=== PATIENT | male | born 1975 | race Caucasian/White ===

== ENCOUNTER 2016-11-17 14:23 | Observation (INO) ==
[2016-11-17] MEDS ORDERED: *HR* LORazepam 2 MG/ML VIAL ONE (14:44)
[2016-11-17] MEDS ORDERED: Haloperidol Lactate 5 MG/ML VIAL IM ONE (14:44)
[2016-11-17] MEDS ORDERED: *HR* LORazepam 2 MG/ML VIAL IM ONE (14:44)
[2016-11-17] MEDS ORDERED: Haloperidol Lactate 5 MG/ML VIAL ONE (14:44)
--- NOTE | 2016-11-17 14:58 | Emergency Department Note ---
Disposition Clinical Impression: Alcohol intoxication Qualifiers: Complication of substance-induced condition: with unspecified complication Qualified Code(s): F10.129 - Alcohol abuse with intoxication, unspecified Psychosis Qualifiers: Psychosis type: unspecified psychosis type Qualified Code(s): F29 - Unspecified psychosis not due to a substance or known physiological condition Disposition: Admitted As Inpatient Condition: Fair Time of Disposition: 16:26 Psych HPI - General Chief Complaint: ED Psychiatric Symptoms Stated Complaint: SI Time Seen by Provider: 11/17/16 14:27 Source: patient, EMS Mode of arrival: EMS Limitations: no limitations Nursing Notes Reviewed: Yes Vital Signs Reviewed: Yes - History of Present Illness HPI Narrative: Patient presents ambulatory by EMS. EMS reported that a neighbor or family member did a welfare check and found the patient to be acting bizarrely. They summoned law enforcement which summoned EMS personnel. The patient denies physical complaints initially. He denies substance abuse. He denies suicidal ideation. He was reported to have superficial self-inflicted abrasions to his left wrist but when questioned he states "it was an accident." The patient was initially a limited historian but denies physical complaints Pt complaint: other History of similar episodes: Yes Associated Psychiatric Symptoms: other (Change in behavior) Associated symptoms: Reports: denies other symptoms Traumatic symptoms: abrasion Treatments prior to arrival: none - Related Data Home Medications Medication Instructions Recorded Confirmed Buspirone HCl [Buspar] 5 mg PO TID 11/17/16 11/17/16 FLUoxetine HCl [Fluoxetine HCl] 40 mg PO QAM 11/17/16 11/17/16 Allergies Allergy/AdvReac Type Severity Reaction Status Date / Time No Known Allergies Allergy Verified 09/25/16 20:21 All systems ED: reviewed and negative except as stated. Constitutional: Reports: as per HPI Eyes: Reports: as per HPI ENT ED: Reports: as per HPI Cardiovascular: Reports: as per HPI Respiratory: Reports: as per HPI Gastrointestinal: Reports: as per HPI Genitourinary: Reports: as per HPI Musculoskeletal: Reports: as per HPI Integumentary: Reports: abrasion Neurological: Reports: as per HPI Psychiatric: Reports: as per HPI Endocrine: Reports: as per HPI Hematological/Lymphatic: Reports: as per HPI Allergic/Immunologic: Reports: as per HPI Past Medical History - Past Medical History Source: patient Medical history: Reports: no medical history Psychiatric history: Reports: other - Social History Smoking Status: Current every day smoker Smokeless Tobacco Status: No Alcohol use: Reports: heavy, recent Drug use: Reports: none Physical Exam Patient initially ambulated to the treatment area voluntarily without physical complaints - General Limitations: no limitations General appearance: alert - Head Head exam: atraumatic - Eye Eye exam: Present: normal appearance, PERRL, other (Enlarged pupils) - ENT ENT exam: normal exam - Neck Neck exam: Present: normal inspection - Chest Chest inspection: Present: normal inspection, symmetric chest wall rise - Respiratory Respiratory exam: Present: normal lung sounds bilaterally - Cardiovascular Cardiovascular exam: Present: regular rate, normal rhythm, normal heart sounds - Rectal Exam Rectal exam: Present: deferred - Extremities Exam Extremities exam: Present: normal inspection - Neurological Exam Neurological exam: Present: alert, oriented X3, CN II-XII intact, other ( Oriented to person, place, time, president) - Psychiatric Psychiatric exam: Present: other (Initially calm) - Skin Skin exam: Present: warm, dry, other (Transverse superficial abrasions in parallel orientation at the volar aspect of left wrist) Course Course Narrative: The patient initially ambulated to the treatment area, and cooperative. He seemed to be an elusive historian. He denied suicidal ideation, thoughts of self-harm, self-inflicted abrasions, or any physical complaints. Shortly thereafter, the patient became progressively agitated. She stood up and threatened to harm staff. He specifically stated that he would break my nose and jaw. He required physical restraints and subsequently intramuscular neuroleptic medications for behavioral control. I will attempt to clear him medically for behavioral evaluation - Reevaluation(s) Reevaluation #1: Patient now calmer. I requested staff to remove one extremity restraightened Reevaluation #2: 2nd restraint to be removed. patient calm Reevaluation #3: Alcohol level 312. Based on calculations, he will not be cleared medically for a behavioral evaluation until 9 hours from now. I will request admission to the medicine service pending sobriety Additional Reevaluation(s): I had a lengthy discussion with the patient's parents. They state that he went through alcohol treatment in August 2016. He has a history of alcoholism which causes this type of angry behavior. They state he has underwent behavioral consultation in the past. They feel "blown off." They have requested that one of the 1A nurses speak with them regarding their concerns. Echo has agreed to do so Vital Signs Temperature 97.7 F 11/17/16 14:36 Pulse Rate 64 11/17/16 14:36 Respiratory Rate 16 11/17/16 14:36 Blood Pressure 163/97 11/17/16 14:36 O2 Sat by Pulse Oximetry 96 11/17/16 14:36 Temperature 97.7 F 11/17/16 14:36 Pulse Rate 91 11/17/16 16:40 Respiratory Rate 16 11/17/16 17:25 Blood Pressure 107/66 11/17/16 17:25 O2 Sat by Pulse Oximetry 96 11/17/16 16:40 Oxygen Delivery Oxygen Delivery Room Air Psych - Medical Records Medical records reviewed: Yes I reviewed the patient's medical records. - Lab Data Lab results reviewed: Yes I reviewed the patient's lab results. Result diagrams: 11/17/16 15:49 11/17/16 15:49 Lab Results 11/17/16 11/17/16 11/17/16 Range/Units 15:23 15:23 15:49 WBC 5.1 (4.3-11.1) K/mcL RBC 4.83 (4.19-5.50) M/mcL Hgb 15.6 (12.9-16.9) g/dL Hct 45.3 (37.5-50.1) % MCV 93.8 (83.0-100.0) fL MCH 32.3 (28.0-33.3) pg MCHC 34.4 (31.6-35.5) g/dL RDW 13.8 (11.5-14.5) % Plt Count 195 (140-400) K/mcL MPV 9.3 L (9.4-12.4) fL Immature Gran % 1.4 (0-4) % Seg Neutrophils % 43.2 % Lymphocytes % 45.1 % Monocytes % 6.9 % Eosinophils % 2.4 % Basophils % 1.0 % Neutrophils # 2.2 (1.6-8.9) K/mcL Lymphocytes # 2.3 (0.6-4.6) K/mcL Monocytes # 0.4 (0.0-1.3) K/mcL Eosinophils # 0.1 (0.0-0.6) K/mcL Basophils # 0.1 (0.0-0.2) K/mcL Sodium (136-145) mEq/L Potassium (3.5-4.5) mEq/L Chloride (98-109) mEq/L Carbon Dioxide (19-29) mEq/L BUN (8-26) mg/dL Creatinine (0.72-1.25) mg/dL Est GFR ( Amer) (> 60) Est GFR (Non-Af Amer) (> 60) BUN/Creatinine Ratio (6-26) Glucose (70-99) mg/dL Calculated Osmolality (280-300) Calcium (8.6-10.8) mg/dL Total Bilirubin (0.2-1.2) mg/dL AST (5-34) Units/L ALT (0-55) Units/L Alkaline Phosphatase (38-126) Units/L Serum Total Protein (6.0-8.3) g/dL Albumin (3.5-5.0) g/dL Globulin (2.4-3.5) g/dL Albumin/Globulin Ratio (1.1-2.2) Urine Color Yellow (Yellow) Urine Clarity Cloudy A (Clear) Urine pH 5.5 (5.0-8.0) pH Units Ur Specific [place] 1.016 (1.010-1.025) Urine Protein Negative (Neg-Trace) mg/dL Urine Glucose (UA) Normal (Normal) mg/dL Urine Ketones Negative (Negative) mg/dL Urine Blood Negative (Negative) Urine Nitrite Negative (Negative) Urine Bilirubin Negative (Negative) Urine Urobilinogen Normal (Normal) mg/dL Ur Leukocyte Esterase Negative (Negative) Urine Microscopic RBC 0-3 (0-3) per hpf Urine Microscopic WBC 3-5 H (0-3) per hpf Ur Squamous Epith Cells Many H (None-Few) per lpf Ur Renal Epithelial Cell Few (None-Few) per hpf Urine Bacteria Few (None-Few) per hpf Hyaline Casts Test Not Performed Urine Mucus Many H (Few) Salicylates (15-30) mg/dL Urine Opiates Screen Negative (Sfivnd=510) ng/mL Acetaminophen (10-30) mcg/mL Ur Barbiturates Screen Negative (Rlpeeu=295) ng/mL Ur Phencyclidine Scrn Negative (Cutoff=25) ng/mL Ur Amphetamines Screen Negative (Sdhzmo=2030) ng/mL U Benzodiazepines Scrn Negative (Qwswpt=075) ng/mL Urine Cocaine Screen Negative (Cutoff= 300) ng/mL U Marijuana (THC) Screen Negative (Cutoff = 50) ng/mL Ethyl Alcohol (0-10) mg/dL 11/17/16 Range/Units 15:49 WBC (4.3-11.1) K/mcL RBC (4.19-5.50) M/mcL Hgb (12.9-16.9) g/dL Hct (37.5-50.1) % MCV (83.0-100.0) fL MCH (28.0-33.3) pg MCHC (31.6-35.5) g/dL RDW (11.5-14.5) % Plt Count (140-400) K/mcL MPV (9.4-12.4) fL Immature Gran % (0-4) % Seg Neutrophils % % Lymphocytes % % Monocytes % % Eosinophils % % Basophils % % Neutrophils # (1.6-8.9) K/mcL Lymphocytes # (0.6-4.6) K/mcL Monocytes # (0.0-1.3) K/mcL Eosinophils # (0.0-0.6) K/mcL Basophils # (0.0-0.2) K/mcL Sodium 144 (136-145) mEq/L Potassium 4.0 (3.5-4.5) mEq/L Chloride 108 (98-109) mEq/L Carbon Dioxide 20 (19-29) mEq/L BUN 11 (8-26) mg/dL Creatinine 0.79 (0.72-1.25) mg/dL Est GFR ( Amer) > 60 (> 60) Est GFR (Non-Af Amer) > 60 (> 60) BUN/Creatinine Ratio 14 (6-26) Glucose 80 (70-99) mg/dL Calculated Osmolality 296 (280-300) Calcium 8.7 (8.6-10.8) mg/dL Total Bilirubin 0.3 (0.2-1.2) mg/dL AST 23 (5-34) Units/L ALT 19 (0-55) Units/L Alkaline Phosphatase 55 (38-126) Units/L Serum Total Protein 6.6 (6.0-8.3) g/dL Albumin 4.1 (3.5-5.0) g/dL Globulin 2.5 (2.4-3.5) g/dL Albumin/Globulin Ratio 1.6 (1.1-2.2) Urine Color (Yellow) Urine Clarity (Clear) Urine pH (5.0-8.0) pH Units Ur Specific [place] (1.010-1.025) Urine Protein (Neg-Trace) mg/dL Urine Glucose (UA) (Normal) mg/dL Urine Ketones (Negative) mg/dL Urine Blood (Negative) Urine Nitrite (Negative) Urine Bilirubin (Negative) Urine Urobilinogen (Normal) mg/dL Ur Leukocyte Esterase (Negative) Urine Microscopic RBC (0-3) per hpf Urine Microscopic WBC (0-3) per hpf Ur Squamous Epith Cells (None-Few) per lpf Ur Renal Epithelial Cell (None-Few) per hpf Urine Bacteria (None-Few) per hpf Hyaline Casts Urine Mucus (Few) Salicylates < 5.0 L (15-30) mg/dL Urine Opiates Screen (Tqspkp=174) ng/mL Acetaminophen < 1.0 L (10-30) mcg/mL Ur Barbiturates Screen (Vcjgof=891) ng/mL Ur Phencyclidine Scrn (Cutoff=25) ng/mL Ur Amphetamines Screen (Hbfcpu=2692) ng/mL U Benzodiazepines Scrn (Zseejf=482) ng/mL Urine Cocaine Screen (Cutoff= 300) ng/mL U Marijuana (THC) Screen (Cutoff = 50) ng/mL Ethyl Alcohol 312 H (0-10) mg/dL Psychiatric Medical Clearance - Medical Clearance Checklist Medical History: No Social History Section defined Current Vitals: Last Vital Signs Temp 97.7 F 11/17/16 14:36 Pulse 91 11/17/16 16:40 Resp 16 11/17/16 17:25 BP 107/66 11/17/16 17:25 Pulse Ox 96 11/17/16 16:40 Psychiatric Lab Panel: Drug Levels and Toxicity 11/17/16 11/17/16 15:23 15:49 Urine Opiates Screen Negative Acetaminophen < 1.0 L Ur Barbiturates Screen Negative Ur Phencyclidine Scrn Negative Ur Amphetamines Screen Negative U Benzodiazepines Scrn Negative Urine Cocaine Screen Negative U Marijuana (THC) Screen Negative Ethyl Alcohol 312 H Abnormal Labs: Abnormal lab results MPV 9.3 fL (9.4-12.4) L 11/17/16 15:49 Urine Clarity Cloudy (Clear) A 11/17/16 15:23 Urine Microscopic WBC 3-5 per hpf (0-3) H 11/17/16 15:23 Ur Squamous Epith Cells Many per lpf (None-Few) H 11/17/16 15:23 Urine Mucus Many (Few) H 11/17/16 15:23 Salicylates < 5.0 mg/dL (15-30) L 11/17/16 15:49 Acetaminophen < 1.0 mcg/mL (10-30) L 11/17/16 15:49 Ethyl Alcohol 312 mg/dL (0-10) H 11/17/16 15:49 Statement of Medical Clearance: I have evaluated the patient, reviewed diagnostic information, and certify that the patient's medical condition is sufficiently stable that transfer to the psychiatric unit does not pose a significant risk of deterioration. Critical Care Time Critical Care Time: Yes Total Critical Care Time: 30 Attestation: Patient became agitated requiring physical restraint and chemical sedation. He is intoxicated. Unable to clear her medically for behavioral evaluation. Admitted to the medicine service
[2016-11-17 15:40] LABS: Bilirubin,Urine Negative (Negative); Blood,Urine Negative (Negative); Clarity,Urine Cloudy (Clear); Color,Urine Yellow (Yellow); Glucose,Urine (UA) Normal (Normal); Ketones,Urine Negative (Negative); Leukocyte Esterase,Urine Negative (Negative); Nitrite,Urine Negative (Negative); PH,Urine 5.5 pH Units (5.0-8.0); Protein,Urine Negative (Neg-Trace); Specific Gravity,Urine 1.016 (1.010-1.025); Urobilinogen,Urine Normal (Normal)
[2016-11-17 15:42] LABS: RBC,Urine 0-3 per hpf (0-3); Squamous Epithelial Cell,Urine Many per lpf (None-Few)
[2016-11-17 15:50] LABS: Amphetamine Screen,Urine Negative ng/mL (Cutoff=1000); Barbiturate Screen,Urine Negative ng/mL (Cutoff=200); Benzodiazepines Screen,Urine Negative ng/mL (Cutoff=200); Cannabinoid Screen,Urine Negative ng/mL (Cutoff = 50); Cocaine Screen,Urine Negative ng/mL (Cutoff= 300); Opiate Screen,Urine Negative ng/mL (Cutoff=300); Phencyclidine Screen,Urine Negative ng/mL (Cutoff=25)
[2016-11-17 15:54] LABS: Basophils # 0.1 K/mcL (0.0-0.2); Eosinophils # 0.1 K/mcL (0.0-0.6); Eosinophils % 2.4 %; Hematocrit 45.3 % (37.5-50.1); Hemoglobin 15.6 g/dL (12.9-16.9); Immature Granulocytes % 1.4 % (0-4); Lymphocytes # 2.3 K/mcL (0.6-4.6); Lymphocytes % 45.1 %; Mean Corpuscular HGB Conc 34.4 g/dL (31.6-35.5); Mean Corpuscular Hemoglobin 32.3 pg (28.0-33.3); Mean Corpuscular Volume 93.8 fL (83.0-100.0); Mean Platelet Volume 9.3 fL (9.4-12.4); Monocytes # 0.4 K/mcL (0.0-1.3); Monocytes % 6.9 %; Neutrophils # 2.2 K/mcL (1.6-8.9); Platelet Count 195 K/mcL (140-400); Red Blood Count 4.83 M/mcL (4.19-5.50); Red Cell Distribution Width 13.8 % (11.5-14.5); Segmented Neutrophils % 43.2 %
[2016-11-17 16:09] LABS: Acetaminophen < 1.0 mcg/mL (10-30); Alanine Aminotransferase 19 Units/L (0-55); Albumin 4.1 g/dL (3.5-5.0); Albumin/Globulin Ratio 1.6 (1.1-2.2); Alkaline Phosphatase 55 Units/L (38-126); Aspartate Amino Transferase 23 Units/L (5-34); BUN/Creatinine Ratio 14 (6-26); Bilirubin,Total 0.3 mg/dL (0.2-1.2); Blood Urea Nitrogen 11 mg/dL (8-26); Calcium 8.7 mg/dL (8.6-10.8); Carbon Dioxide 20 mEq/L (19-29); Chloride 108 mEq/L (98-109); Ethanol 312 mg/dL (0-10); Globulin 2.5 g/dL (2.4-3.5); Glucose 80 mg/dL (70-99); Osmolality,Calculated 296 (280-300); Salicylate < 5.0 mg/dL (15-30); Sodium 144 mEq/L (136-145); Total Protein 6.6 g/dL (6.0-8.3); eGFR For African Americans > 60 (> 60); eGFR For Non-African Americans > 60 (> 60)
[2016-11-17 16:13] LABS: Mucus,Urine Many (Few); Renal Epithelial Cells,Urine Few per hpf (None-Few)
[2016-11-17 16:14] LABS: Bacteria,Urine Few per hpf (None-Few)
[2016-11-17] MEDS ORDERED: Naloxone 0.4 MG/ML INJ IVP PRN (17:24)
[2016-11-17] MEDS ORDERED: Ondansetron 4 MG/2 ML VIAL IVP PRN (17:24)
[2016-11-17] MEDS ORDERED: Acetaminophen 325 MG TABLET PO PRN (17:24)
--- NOTE | 2016-11-17 17:38 | Internal Med History&Physical ---
Date of Encounter: 11/17/16 Time of Encounter: 16:55 Internal Medicine - H&P: HPI Chief complaint: confusion Admitted From: Emergency Dept Plans for Post Hospital Care: Home History of present illness: Mr. Oquendo is a 41 year old male with medical history significant for anxiety on Fluoxetine and Buspirone was brought in by EMS after a family member called law enforcement to report the patient was acting bizarre . Law enforcement then called EMS. As per ED report, the patient had no complaints at presentation, he denied use of illicit drug, as well as suicidal ideation. ED personnel was concerned about some marking on his wrist, thought to be self-inflicted, he reports the marking were accidental. At the time I evaluated him, he was sleeping, but easily arousable, only to drift back to sleep. History was thus limited. He was able to tell be he was fine and had no complaints. I am unable to complete a ROS or family history, personal medical or surgical history. I had to rely on prior medical records. Vital Signs Temperature 97.7 F 11/17/16 14:36 Pulse Rate 64 11/17/16 14:36 Respiratory Rate 16 11/17/16 14:36 Blood Pressure 163/97 11/17/16 14:36 O2 Sat by Pulse Oximetry 96 11/17/16 14:36 Temperature 97.7 F 11/17/16 14:36 Pulse Rate 97 11/17/16 15:47 Respiratory Rate 16 11/17/16 15:47 Blood Pressure 96/56 11/17/16 15:47 O2 Sat by Pulse Oximetry 95 11/17/16 15:47 O/E: Not in distress, drowsy/somnolent, not or ill and toxic looking HEENT: Not pale, anicteric, acyanotic, afebrile Chest: snoring, otherwise clinically clear Heart: RRR, HS1.2 no murmur Abdomen: soft, non-tender, no masses. : no suprapubic tenderness. no flank or CVA tenderness. FOUNDRY HAND: AAO x3, no gross focal neurological signs, as he moves all four limbs spontaneously. Psychiatry: Unable to assess. Extremities: no pedal edema, normal pedal pulses, no calf tenderness. Lab Results 11/17/16 11/17/16 11/17/16 Range/Units 15:23 15:23 15:49 WBC 5.1 (4.3-11.1) K/mcL RBC 4.83 (4.19-5.50) M/mcL Hgb 15.6 (12.9-16.9) g/dL Hct 45.3 (37.5-50.1) % MCV 93.8 (83.0-100.0) fL MCH 32.3 (28.0-33.3) pg MCHC 34.4 (31.6-35.5) g/dL RDW 13.8 (11.5-14.5) % Plt Count 195 (140-400) K/mcL MPV 9.3 L (9.4-12.4) fL Immature Gran % 1.4 (0-4) % Seg Neutrophils % 43.2 % Lymphocytes % 45.1 % Monocytes % 6.9 % Eosinophils % 2.4 % Basophils % 1.0 % Neutrophils # 2.2 (1.6-8.9) K/mcL Lymphocytes # 2.3 (0.6-4.6) K/mcL Monocytes # 0.4 (0.0-1.3) K/mcL Eosinophils # 0.1 (0.0-0.6) K/mcL Basophils # 0.1 (0.0-0.2) K/mcL Sodium (136-145) mEq/L Potassium (3.5-4.5) mEq/L Chloride (98-109) mEq/L Carbon Dioxide (19-29) mEq/L BUN (8-26) mg/dL Creatinine (0.72-1.25) mg/dL Est GFR ( Amer) (> 60) Est GFR (Non-Af Amer) (> 60) BUN/Creatinine Ratio (6-26) Glucose (70-99) mg/dL Calculated Osmolality (280-300) Calcium (8.6-10.8) mg/dL Total Bilirubin (0.2-1.2) mg/dL AST (5-34) Units/L ALT (0-55) Units/L Alkaline Phosphatase (38-126) Units/L Serum Total Protein (6.0-8.3) g/dL Albumin (3.5-5.0) g/dL Globulin (2.4-3.5) g/dL Albumin/Globulin Ratio (1.1-2.2) Urine Color Yellow (Yellow) Urine Clarity Cloudy A (Clear) Urine pH 5.5 (5.0-8.0) pH Units Ur Specific [place] 1.016 (1.010-1.025) Urine Protein Negative (Neg-Trace) mg/dL Urine Glucose (UA) Normal (Normal) mg/dL Urine Ketones Negative (Negative) mg/dL Urine Blood Negative (Negative) Urine Nitrite Negative (Negative) Urine Bilirubin Negative (Negative) Urine Urobilinogen Normal (Normal) mg/dL Ur Leukocyte Esterase Negative (Negative) Urine Microscopic RBC 0-3 (0-3) per hpf Urine Microscopic WBC 3-5 H (0-3) per hpf Ur Squamous Epith Cells Many H (None-Few) per lpf Ur Renal Epithelial Cell Few (None-Few) per hpf Urine Bacteria Few (None-Few) per hpf Hyaline Casts Test Not Performed Urine Mucus Many H (Few) Salicylates (15-30) mg/dL Urine Opiates Screen Negative (Ipbaog=186) ng/mL Acetaminophen (10-30) mcg/mL Ur Barbiturates Screen Negative (Jkhpna=085) ng/mL Ur Phencyclidine Scrn Negative (Cutoff=25) ng/mL Ur Amphetamines Screen Negative (Vofutx=7994) ng/mL U Benzodiazepines Scrn Negative (Pepnph=184) ng/mL Urine Cocaine Screen Negative (Cutoff= 300) ng/mL U Marijuana (THC) Screen Negative (Cutoff = 50) ng/mL Ethyl Alcohol (0-10) mg/dL 11/17/16 Range/Units 15:49 WBC (4.3-11.1) K/mcL RBC (4.19-5.50) M/mcL Hgb (12.9-16.9) g/dL Hct (37.5-50.1) % MCV (83.0-100.0) fL MCH (28.0-33.3) pg MCHC (31.6-35.5) g/dL RDW (11.5-14.5) % Plt Count (140-400) K/mcL MPV (9.4-12.4) fL Immature Gran % (0-4) % Seg Neutrophils % % Lymphocytes % % Monocytes % % Eosinophils % % Basophils % % Neutrophils # (1.6-8.9) K/mcL Lymphocytes # (0.6-4.6) K/mcL Monocytes # (0.0-1.3) K/mcL Eosinophils # (0.0-0.6) K/mcL Basophils # (0.0-0.2) K/mcL Sodium 144 (136-145) mEq/L Potassium 4.0 (3.5-4.5) mEq/L Chloride 108 (98-109) mEq/L Carbon Dioxide 20 (19-29) mEq/L BUN 11 (8-26) mg/dL Creatinine 0.79 (0.72-1.25) mg/dL Est GFR ( Amer) > 60 (> 60) Est GFR (Non-Af Amer) > 60 (> 60) BUN/Creatinine Ratio 14 (6-26) Glucose 80 (70-99) mg/dL Calculated Osmolality 296 (280-300) Calcium 8.7 (8.6-10.8) mg/dL Total Bilirubin 0.3 (0.2-1.2) mg/dL AST 23 (5-34) Units/L ALT 19 (0-55) Units/L Alkaline Phosphatase 55 (38-126) Units/L Serum Total Protein 6.6 (6.0-8.3) g/dL Albumin 4.1 (3.5-5.0) g/dL Globulin 2.5 (2.4-3.5) g/dL Albumin/Globulin Ratio 1.6 (1.1-2.2) Urine Color (Yellow) Urine Clarity (Clear) Urine pH (5.0-8.0) pH Units Ur Specific [place] (1.010-1.025) Urine Protein (Neg-Trace) mg/dL Urine Glucose (UA) (Normal) mg/dL Urine Ketones (Negative) mg/dL Urine Blood (Negative) Urine Nitrite (Negative) Urine Bilirubin (Negative) Urine Urobilinogen (Normal) mg/dL Ur Leukocyte Esterase (Negative) Urine Microscopic RBC (0-3) per hpf Urine Microscopic WBC (0-3) per hpf Ur Squamous Epith Cells (None-Few) per lpf Ur Renal Epithelial Cell (None-Few) per hpf Urine Bacteria (None-Few) per hpf Hyaline Casts Urine Mucus (Few) Salicylates < 5.0 L (15-30) mg/dL Urine Opiates Screen (Hjxfxa=704) ng/mL Acetaminophen < 1.0 L (10-30) mcg/mL Ur Barbiturates Screen (Xfeevs=391) ng/mL Ur Phencyclidine Scrn (Cutoff=25) ng/mL Ur Amphetamines Screen (Nuhkth=2799) ng/mL U Benzodiazepines Scrn (Ccilvz=301) ng/mL Urine Cocaine Screen (Cutoff= 300) ng/mL U Marijuana (THC) Screen (Cutoff = 50) ng/mL Ethyl Alcohol 312 H (0-10) mg/dL IMPRESSION Alcohol intoxication. Markings on wrist of unknown significance. Probable depression Chronic morbidities Generalized anxiety disorder PLAN Admit IVF NS @ 100 1;1 observation Consider psychiatry evaluation when he is sober. No indication for GI or DVT prophylaxis. I am unable to discuss my assessment with the patient, he is high risk giving the alcohol intoxication and suspicion for self-harm. Past Med Surg Social Fam HX - Past Medical History Medical history: no medical history Psychiatric history: other - Social History Smoking Status: Current every day smoker Smokeless Tobacco Status: No Alcohol use: heavy, recent Drug use: none Internal Medicine - H&P: Meds Buspirone HCl [Buspar] 5 mg PO TID 11/17/16 [History] FLUoxetine HCl [Fluoxetine HCl] 40 mg PO QAM 11/17/16 [History] Allergies No Known Allergies Allergy (Verified 09/25/16 20:21) All Systems PM: A 10-system review of systems was performed and is negative for pertinent findings except as documented above in the HPI. - Constitutional Vitals: Temp Pulse Resp BP Pulse Ox 97.7 F 91 16 107/66 96 11/17/16 14:36 11/17/16 16:40 11/17/16 17:25 11/17/16 17:25 11/17/16 16:40 Internal Med - H&P Results - Labs CBC & Chem 7: 11/17/16 15:49 11/17/16 15:49 - VTE Reasons for not Prescribing Prophylaxis: Treatment not Indicated - Low risk for VTE
[2016-11-17] MEDS: Ringers Solution, Lactated 1,000 ML IVC SCH (22:13)
[2016-11-18 03:10] VITALS: BP 145/70
[2016-11-18] MEDS: Ringers Solution, Lactated 1,000 ML IVC SCH (07:31)
[2016-11-18] MEDS ORDERED: FLUoxetine 20 MG CAPSULE PO SCH (09:00)
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
--- NOTE | 2016-11-18 14:06 | Discharge Summary ---
Date of Encounter: 11/18/16 Time of Encounter: 13:50 - Discharge Diagnosis (1) Alcohol dependence Priority: Primary Status: Chronic Qualifiers: Substance use status: with intoxication Complication of substance-induced condition: with unspecified complication Qualified Code(s): F10.229 - Alcohol dependence with intoxication, unspecified (2) Alcohol intoxication Priority: Primary Status: Acute Qualifiers: Complication of substance-induced condition: with unspecified complication Qualified Code(s): F10.129 - Alcohol abuse with intoxication, unspecified (3) Major depressive disorder, recurrent severe without psychotic features Priority: Secondary Status: Chronic - Discharge Medications Home Medications: Buspirone HCl [Buspar] 5 mg PO TID 11/17/16 [History] FLUoxetine HCl [Fluoxetine HCl] 40 mg PO QAM 11/17/16 [History] Chlordiazepoxide [Librium] 25 mg PO TID #0 capsule 11/18/16 [Rx] Allergies/Adverse Reactions: Allergies No Known Allergies Allergy (Verified 09/25/16 20:21) Date of admission: 11/17/16 17:13 Primary care physician: PCP NO Consults: 11/17/16 22:04 Consult to Digester Operator [CONS] Routine Reason for SW Consult: S.I. 11/18/16 12:05 Consult to Psychiatry [CONS] Stat Consulting Provider: Juan Carlos Sheppard Reason for Consult: Alcohol abuse, with suicidal ideation. Pls evaluate, thank you Call Completed: Yes Discharging clinician: Jamison Dupree Anticipated date of discharge: 11/18/16 - Patient Status Disposition: Transfer Psychiatric Hosp Condition: Fair Functional capacity at discharge: independent ambulation Overall status at discharge: patient is back to baseline - Discharge Instructions Follow Up With: NO,PCP [Primary Care Provider] - - Diet and Activity Activity: resume usual activities as tolerated Diet: regular diet Interval History: See below Hospital course: Mr. Oquendo is a 41 year old male with Depression, Alcohol abuse and dependence Patient was admitted to medicine with alcohol intoxication for monitoring Alcohol level was >300 on admission He is awake and alert this morning He has no new complains He had endorsed suicidal ideation on admission Psych was consulted with recommendations noted for in-patient psych admission CBC and Chem WNL Repeat Alcohol level <10 Patient is medically cleared to transfer to he has been started on po librium Smoking cessation counselling done for 3 minutes Time spent discussing smoking cessation with patient: 3 to 10 minutes - Time Spent with Patient Total time spent providing and/or coordinating discharge services: Less than 30 minutes - Constitutional Vitals: Temp Pulse Resp BP Pulse Ox 98.3 F 95 16 145/70 97 11/18/16 03:06 11/18/16 03:06 11/18/16 03:06 11/18/16 03:06 11/18/16 07:30 General appearance: Present: A&O X 3, pleasant, no acute distress, answers questions appropriately - Head Head exam: Present: atraumatic, normocephalic - Eye Eye exam: Present: PERRL, conjuntiva pink, sclera anicteric Pupils: Present: PERRL - Neck Neck exam general surgery: Present: supple, trachea midline. Absent: lymphadenopathy - Respiratory Respiratory exam: Present: CTAB. Absent: accessory muscle use, rales, rhonchi, wheezes - Cardiovascular Cardiovascular exam: Present: RRR, +S1, +S2. Absent: diastolic murmur, gallop, rubs, systolic murmur - GI/Abdominal GI/Abdominal exam: Present: normal bowel sounds, soft, no peritoneal signs. Absent: distended, tenderness - Extremities Exam Extremities exam: Present: warm, radial pulses palpable and symetrical. Absent : calf tenderness, cyanotic, pedal edema - Neurological Exam Neurological exam: Present: CN II-XII intact, oriented X3, no focal deficits. Absent: pronater drift, facial droop, speech deficit - Skin Skin exam: Present: dry, intact - VTE Reasons for not Prescribing Prophylaxis: Treatment not Indicated - Low risk for VTE
== END 2016-11-18 16:04 ==
LOC: 3BNU 14:23 → EMEROO 14:23 → SUATTDRO 17:13 → 3BNU 18:30
PROVIDERS: ADMIT Family Medicine; ATTEND Internal Medicine

== ENCOUNTER 2016-11-18 15:58 | Inpatient (IN) ==
[2016-11-18] MEDS ORDERED: Ibuprofen 400 MG TABLET PO PRN (16:06)
[2016-11-18] MEDS ORDERED: *HR* LORazepam 2 MG/ML VIAL IM PRN ×2 (16:06→16:18)
[2016-11-18] MEDS ORDERED: MOM Conc 10 ML UD.LIQ PO PRN (16:06)
[2016-11-18] MEDS ORDERED: Haloperidol Lactate 5 MG/ML VIAL IM PRN ×2 (16:06→16:13)
[2016-11-18] MEDS ORDERED: *HR* LORazepam 1 MG TABLET PO PRN ×2 (16:06→16:18)
[2016-11-18] MEDS ORDERED: Mag Hydrox/Al Hydrox/Simeth 30 ML UDC PO PRN (16:06)
[2016-11-18] MEDS ORDERED: hydrOXYzine pamoate 25 MG CAPSULE PO PRN (16:11)
[2016-11-19] MEDS: FLUoxetine 20 MG CAPSULE PO SCH (08:35)
--- NOTE | 2016-11-19 11:44 | Psychiatry History & Physical ---
Date of Encounter: 11/19/16 Time of Encounter: 11:00 History of Present Illness Patient Stated Chief Complaint: "I don't need to be here." Medicare Admission Attestation: For traditional Medicare patients the provided hospital inpatient services are reasonable and necessary and in the case of services not specified as inpatient -only under 42 CFR 419.22 (n), that they are appropriately provided as inpatient services in accordance 42 CFR 412.3. For Critical Access Hospital the patient may reasonably be expected to be discharged or transferred to a hospital within 96 hours after admission to the Critical Access Hospital. Admitted From: Intrahospital Transfer Plans for Post Hospital Care: Home History of Present Illness: Mr. Oquendo is a 41 year old male with history of depression and alcohol dependence who was transferred from the medical floor after he attempted to hurt himself while he was intoxicated. Patient has continued to deny that he has any problems and does not want help provided here. Patient states that he does not want to kill himself. He is unwilling to discuss treatment issues with this provider at this time. He is upset that he has been brought down here against his will. He has for the most part pleasant with staff but his family has called here several times because he claims he does not know why he is here. Patient reports that he did not tell anybody that he was going to kill himself. Patient states "I have too much to do I do not want to be here anymore." See previous consult note for full discussion with patient's mother. Patient's mother is very concerned about his mental health and reports that he does make threats that he will kill himself and occasionally makes threats that he will "take somebody out with me." Patient denies this when I discussed this with him in person. He seems fairly resistant to treatment but given his history of depression and high level of alcohol use he is very high risk for accidental or intentional self-harm. Past Med Surg Social Fam HX - Past Medical History Medical history: no medical history - Past Psychiatric History Psychiatric history: Reports: depression. Denies: prior suicide attempt, previous psychiatric hospitalization Past psychiatric history details: The patient has been to rehabilitation before but has never been admitted to a psychiatric facility. Family psychiatric history: Yes Family Psychiatric History Details: The patient's mom has depression. Family History of Suicide: None - Past Surgical History Surgical History: vasectomy - Social History Smoking Status: Current every day smoker Smokeless Tobacco Status: No Alcohol use: heavy, recent Drug use: none Occupational status: unemployed Current living situation: Homeless Medications & Allergies Buspirone HCl [Buspar] 5 mg PO TID 11/17/16 [History] FLUoxetine HCl [Fluoxetine HCl] 40 mg PO QAM 11/17/16 [History] Chlordiazepoxide [Librium] 25 mg PO TID #0 capsule 11/18/16 [Rx] Allergies No Known Allergies Allergy (Verified 09/25/16 20:21) Review of Systems Constitutional: Denies: fever, chills, weakness, weight change Eyes: Denies: eye pain, vision change Ears, Nose, Throat: Denies: ear pain, throat pain, dental pain, hearing loss, congestion Cardiovascular: Denies: chest pain, palpitations, dyspnea on exertion Respiratory: Denies: cough, dyspnea, wheezes Gastrointestinal: Denies: abdominal pain, nausea, vomiting, diarrhea, constipation Genitourinary male: Denies: urgency, dysuria, frequency, genital lesions Genitourinary female: Denies: urgency, dysuria, frequency, abnormal menses, dyspareunia Musculoskeletal: Denies: joint swelling, joint pain Integumentary: Denies: rash, lesions, pruritus Neurological: Denies: headache, weakness, numbness, memory loss Psychiatric: Reports: depression, anxiety, abnormal sleep pattern, irritability Endocrine: Denies: fatigue, heat or cold intolerance Hematologic/Lymphatic: Denies: easy bruising, lymphadenopathy Allergic/Immunologic: Denies: urticaria, itchy eyes Mental Status Exam Patient orientation: Yes Person, Yes Time, Yes Place Level of alertness: Alert Patient appearance: Appropriate Behavior: agitated, guarded, dramatic Psychomotor activity: Increased Eye contact: Fleeting Contact Mood description: Labile, Irritable Affect description: congruent with mood Speech pattern: Normal rate, Normal rhythm, Normal tone Speech volume: Normal Thought process: Evasive Thought content: No Suicidal ideation, No Homicidal ideation Perceptual disturbances: Yes Reacting to internal stimuli Attention span: Capable of Focused Attention Patient reliability: Questionable Historian Intelligence estimate: Average Judgment: Limited Insight: Minimal Results - Vital Signs Vital signs: Temp Pulse Resp BP 98.8 F 75 16 132/88 11/19/16 08:00 11/19/16 08:00 11/19/16 08:00 11/19/16 08:00 Assessment and Plan (1) Major depressive disorder, recurrent severe without psychotic features Current visit: No Status: Chronic Plan: Admit inpatient for safety and stabilization, Close observation, Suicide Precautions per unit protocol, Encourage participation in unit milieu, Group Therapy, Monitor sleep, Monitor appetite Additional Plan: Patient reports depression but at this time does not want to make medication changes because he is upset about being here involuntarily. Given that he has a long history of depression and alcohol use exacerbates his mood issues, we will monitor him over night. Monitor for sleep and appetite. Risks, benefits, side effects, alternatives discussed w/pt: Yes Patient agreeable to treatment: No Plans for Post Hospital Care: Home Estimated Length of Stay (Days): 3 (2) Alcohol dependence Current visit: No Status: Chronic Plan: Admit inpatient for safety and stabilization, Close observation, Suicide Precautions per unit protocol, Encourage participation in unit milieu, Group Therapy, Monitor sleep, Monitor appetite Additional Plan: Patient is currently refusing Librium because "I am not an alcoholic." He did admit to staff here that he drinks a pint to a fifth of whiskey daily at the very minimum. We will continue to monitor vitals and offer intervention for potential withdrawal. Vitals are stable at the moment. Encouraged patient to consider medication. Encouraged patient to consider alcohol treatment programs. Risks, benefits, side effects, alternatives discussed w/pt: Yes Patient agreeable to treatment: No Qualifiers: Substance use status: with intoxication Complication of substance-induced condition: with unspecified complication Qualified Code(s): F10.229 - Alcohol dependence with intoxication, unspecified
[2016-11-19] MEDS: traZODone 50 MG TABLET PO PRN (20:24)
[2016-11-20] MEDS: FLUoxetine 20 MG CAPSULE PO SCH (09:54)
--- NOTE | 2016-11-20 11:29 | Psychiatry Progress Note ---
Date of Encounter: 11/20/16 Time of Encounter: 11:26 Subjective Interval history: Patient seen in follow-up. I reviewed the admission notes and nursing notes. Patient is under 72 hour hold for suicidal ideation and on-call intoxication and dependence. He is uncooperative and irritable angry and wants to be discharged immediately and he would not answer any questions and his answer to questions are evasive. He is not able to recognize his condition on admission with his suicide note and alcohol level 312. I explained to him the procedure for involuntary commitment and his treatment plan and goals and he would not accept any information. Review of Systems Psychiatric: Reports: depression, anxiety, abnormal sleep pattern, suicidal ideation, irritability Objective: Exam Patient orientation: Yes Person, Yes Time, Yes Place Level of alertness: Alert Patient appearance: Appropriate Behavior: nervous, agitated, uncooperative, guarded, dramatic Psychomotor activity: Agitated Eye contact: Intense Contact Mood description: Labile, Irritable Affect description: labile, other (Angry) Speech pattern: Normal rate, Normal rhythm, Normal tone, Other (Argumentative) Speech volume: Loud Thought process: Evasive, Perseveration Thought content: No Suicidal ideation, No Homicidal ideation Perceptual disturbances: Yes Reacting to internal stimuli Judgment: Limited Insight: Minimal Results - Vital Signs Vital Signs: Temp Pulse Resp BP 97.7 F 57 12 113/74 11/20/16 08:00 11/20/16 08:00 11/20/16 08:00 11/20/16 08:00 Assessment and Plan (1) Major depressive disorder, recurrent severe without psychotic features Current visit: No Status: Chronic Plan: Continue hospitalization, Close observation, Suicide Precautions per unit protocol, Encourage participation in unit milieu, Group Therapy, Monitor sleep, Monitor appetite Risks, benefits, side effects, alternatives discussed w/pt: Yes Patient agreeable to treatment: No
[2016-11-20] MEDS: traZODone 50 MG TABLET PO PRN (21:46)
[2016-11-21] MEDS: FLUoxetine 20 MG CAPSULE PO SCH (09:18)
--- NOTE | 2016-11-21 10:04 | Discharge Summary ---
Date of Encounter: 11/21/16 Time of Encounter: 10:02 Diagnosis - Discharge Diagnosis (1) Major depressive disorder, recurrent severe without psychotic features Priority: Primary Status: Chronic (2) Alcohol dependence Priority: Secondary Status: Chronic Qualifiers: Substance use status: with intoxication Complication of substance-induced condition: with unspecified complication Medications - Discharge Medications Prescriptions: Buspirone HCl [Buspar] 15 mg PO BID #60 tablet HydrOXYzine Pamoate 50 mg PO TID PRN #30 capsule PRN Reason: Anxiety Paroxetine [Paxil] 20 mg PO DAILY #30 tablet Buspirone HCl [Buspar] 15 mg PO BID #60 tablet 11/21/16 [Rx] HydrOXYzine Pamoate 50 mg PO TID PRN #30 capsule 11/21/16 [Rx] Paroxetine [Paxil] 20 mg PO DAILY #30 tablet 11/21/16 [Rx] Allergies No Known Allergies Allergy (Verified 09/25/16 20:21) Provider Date of admission: 11/18/16 15:58 Primary care physician: Jimmy Murray Discharging clinician: Ayan Lazo Assessment and Plan - Patient/Caregiver Discharge Instructions Activity: resume usual activities as tolerated Diet: regular diet - Follow up Plan Follow up with: [facility] [place] [Outside] - 11/28/16 10:00 am (The above appointment is with Dr. Oquendo. Due to prior missed appointments, it is imperative to keep this appointment or you may not be able to be rescheduled in the future.) [facility] [Outside] (The above appointment is with Brigid oCchran for counseling.) Functional capacity at discharge: independent ambulation Overall status at discharge: Stable Disposition: Home, Self-Care Hospital Course Hospital course: Mr. Oquendo is a 41 year old male admitted from the [facility] for depression and alcohol dependence and suicidal ideation. For details of admission please see H &P and consult. On the unit patient was irritable and uncooperative as contributing discharged to refuse to take medication and he denied being suicidal. 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 We had a meeting was patient's manager social services and discussed safety-related issues and ongoing dependence treatment and rehabilitation. Patient was agreeable to discharge plan and follow-up plans. Prior to Discharge patient was medically stable, denies suicidal or homicidal ideation and planning to follow-up as per discharge plan. - Time Spent with Patient Total time spent providing and/or coordinating discharge services: Greater than 30 minutes Quality - Multiple Antipsychotics Patient discharged on 2 or more antipsychotic medications: No Procedures - Procedures Procedures: Medication Management, Crisis Stabilization, Supportive Therapy, Group Therapy, Psychoeducational Therapy Mental Status Exam - Mental Status Exam Patient orientation: Yes Person, Yes Time, Yes Place Level of alertness: Alert Patient appearance: Appropriate Behavior: calm, cooperative, nervous, guarded, dramatic Psychomotor activity: Normal Eye contact: Maintains Eye Contact Mood description: Euthymic/stable Affect description: congruent with mood, labile Speech pattern: Normal rate, Normal rhythm, Normal tone Speech Volume: Normal Thought process: Intact, Logical, Evasive Thought Content: No Suicidal ideation, No Homicidal ideation Perceptual Disturbances: No Auditory hallucinations, No Visual hallucinations Judgment: Limited Insight: Minimal
[2016-11-21 12:35] VITALS: BP 133/80
== END 2016-11-21 12:45 | disposition home or self-care (01) | DRG 751 ==
LOC: 1ANU 15:58 → SUATTDRO 15:58
PROVIDERS: ADMIT Student in an Organized Health Care Education/Training Program; ATTEND Psychiatry & Neurology Psychiatry